=== PATIENT | female | born 1965 | race Caucasian/White ===

== ENCOUNTER 2017-10-20 08:17 | Day surgery (SDC) | payer OTHER ==
[~2017-10-20] VITALS: Ht 162.6 cm; Wt 100.4 kg
[~2017-10-20 08:17] MED LIST: FERR140T2 PO; OMEP40CA6 PO
[2017-10-20 08:47] VITALS: Ht 162.6 cm; Wt 100.4 kg
[2017-10-20 09:26] VITALS: BP 118/70; PULSE 72; RESP 13
[2017-10-20] MEDS ORDERED: LIDOCAINE 100 MG SYRINGE ONE (09:50)
[2017-10-20] MEDS ORDERED: PROPOFOL 40 ML ONE (09:50)
--- NOTE | 2017-10-20 10:21 | OPPN ---
Date/Time of Note Date/Time of Note DATE: 10/20/17 TIME: 10:20 Operative Report Preoperative Diagnosis Screening Postoperative Diagnosis Internal hemorrhoids No colon neoplasm is identified Operation/Procedure Performed Colonoscopy Surgeon see signature line miller head assistant wet process None Anesthesia: MAC Estimated blood loss: none Transfusion Required none Specimen None Grafts/Implants none Complications none GRADY SANDOVAL MD Oct 20, 2017 10:21
[2017-10-20 10:42] VITALS: BP 117/76; PULSE 73; RESP 19
--- NOTE | 2017-10-21 05:13 | GILP ---
DATE OF PROCEDURE: 10/20/2017 NAME OF PROCEDURE: Colonoscopy. SURGEON: Grady Mensah MD PREOPERATIVE DIAGNOSIS: Screening colonoscopy. POSTOPERATIVE DIAGNOSES 1. Colonoscopy all the way to the cecum. 2. Internal hemorrhoids. 3. No colon neoplasm was identified. INDICATION FOR THE PROCEDURE: Ms. Richa Garcia is a 52-year-old female patient who had family hist ory of colon cancer. She needed screening colonoscopy. The procedure and possible complications were well explained to the patient, she understood and cons ented to the procedure. DESCRIPTION OF PROCEDURE: Under the influence of anesthesia, the colonoscope was carefully introduc ed in the rectum and under direct vision, it was advanced all the way to the cecum. FINDINGS: The patient had internal hemorrhoids. No colon neoplasm was identified. The patient tolerated the procedure very well and there was no complication from the procedure. At the end of the procedure, she was awake with stable vital signs and she was discharged home to the [facility] her family. IMPRESSION: Please see postoperative diagnoses. PLAN: Screening colonoscopy in 10 years. Dictated By: GRADY GRANT/RALPH Conf#: [id number] DID#: [id number]
== END 2017-10-20 11:24 | disposition home or self-care (01) ==
LOC: GIL 08:17
PROVIDERS: ATTEND Internal Medicine Gastroenterology
DX: Z12.11 Encounter for screening for malignant neoplasm of colon (principal); K64.8 Other hemorrhoids
CPT/HCPCS: 45378; J2001; Z7610